=== PATIENT | male | born 1945 | race Caucasian/White ===

== ENCOUNTER 2019-07-25 16:48 | Observation (INO) ==
[2019-07-25 17:22] LABS: Bilirubin,Urine Negative (Negative); Blood,Urine Large (Negative); Clarity,Urine Clear (Clear); Color,Urine Yellow (Yellow); Glucose,Urine (UA) Normal (Normal); Ketones,Urine Trace mg/dL (Negative); Leukocyte Esterase,Urine Trace (Negative); Nitrite,Urine Negative (Negative); PH,Urine 5.5 pH Units (5.0-8.0); Protein,Urine 30 mg/dL (Neg-Trace); Specific Gravity,Urine 1.027 (1.010-1.025); Urobilinogen,Urine Normal (Normal)
[2019-07-25 17:26] LABS: Bacteria,Urine None Seen per hpf (None-Few); Hyaline Casts,Urine None Seen per lpf (None-Few); RBC,Urine TNTC per hpf (0-3); Squamous Epithelial Cell,Urine Moderate per lpf (None-Few)
[2019-07-25 18:12] LABS: Basophils % 0.4 %; Eosinophils # 0.1 K/mcL (0.0-0.6); Eosinophils % 0.5 %; Hematocrit 41.8 % (37.5-50.1); Hemoglobin 13.6 g/dL (12.9-16.9); Immature Granulocytes % 0.2 % (0-4); Lymphocytes # 1.5 K/mcL (0.6-4.6); Mean Corpuscular HGB Conc 32.5 g/dL (31.6-35.5); Mean Corpuscular Hemoglobin 31.2 pg (28.0-33.3); Mean Corpuscular Volume 95.9 fL (83.0-100.0); Mean Platelet Volume 11.1 fL (9.4-12.4); Monocytes # 0.8 K/mcL (0.0-1.3); Monocytes % 9.1 %; Neutrophils # 6.7 K/mcL (1.6-8.9); Platelet Count 171 K/mcL (140-400); Red Blood Count 4.36 M/mcL (4.19-5.50); Segmented Neutrophils % 73.8 %; White Blood Count 9.1 K/mcL (4.3-11.1)
[2019-07-25 18:26] LABS: Alanine Aminotransferase 15 Units/L (7-52); Albumin 3.7 g/dL (3.5-5.7); Albumin/Globulin Ratio 1.6 (1.1-2.2); Alkaline Phosphatase 54 Units/L (34-104); Aspartate Amino Transferase 14 Units/L (13-39); BUN/Creatinine Ratio 15 (6-26); Bilirubin,Direct 0.2 mg/dL (0.0-0.2); Bilirubin,Indirect 0.4 mg/dL (0.0-1.0); Bilirubin,Total 0.6 mg/dL (0.3-1.0); Blood Urea Nitrogen 15 mg/dL (8-23); Calcium 9.2 mg/dL (8.6-10.3); Carbon Dioxide 25 mEq/L (23-29); Chloride 107 mEq/L (98-107); Globulin 2.3 g/dL (2.4-3.5); Glucose 119 mg/dL (70-105); Lipase 29 Units/L (11-82); Osmolality,Calculated 290 (280-300); Potassium 4.4 mEq/L (3.5-5.1); Sodium 139 mEq/L (136-145); eGFR For African Americans > 60 (> 60); eGFR For Non-African Americans > 60 (> 60)
[2019-07-25] MEDS ORDERED: Ondansetron 4 MG/2 ML VIAL IVP ONE (19:13)
[2019-07-25] MEDS ORDERED: *HR* HYDROmorphone (PF) 1 MG/ML SYRINGE IVP ONE (19:13)
[2019-07-25] MEDS ORDERED: Ketorolac 15 MG/ML VIAL IVP ONE (19:14)
[2019-07-25] MEDS ORDERED: cefTRIAXone 1,000 MG in Water for inj. (sterile) 10 ML IVP ONE (19:15)
[2019-07-25] MEDS ORDERED: Ondansetron ODT 4 MG TAB.RAPDIS SL PRN (22:13)
[2019-07-25] MEDS ORDERED: Naloxone 0.4 MG/ML INJ IVP PRN ×2 (22:13→22:16)
[2019-07-25 22:56] LABS: Troponin I < 0.03 ng/mL (< 0.04)
[2019-07-25] MEDS: 0.9 % Sodium Chloride 1,000 ML IVC SCH (23:19)
[2019-07-26 05:33] LABS: Basophils # 0.1 K/mcL (0.0-0.2); Basophils % 0.8 %; Eosinophils # 0.1 K/mcL (0.0-0.6); Eosinophils % 1.7 %; Hemoglobin 12.7 g/dL (12.9-16.9); Immature Granulocytes % 0.1 % (0-4); Lymphocytes # 2.3 K/mcL (0.6-4.6); Lymphocytes % 28.9 %; Mean Corpuscular HGB Conc 33.4 g/dL (31.6-35.5); Mean Corpuscular Hemoglobin 32.2 pg (28.0-33.3); Mean Corpuscular Volume 96.4 fL (83.0-100.0); Mean Platelet Volume 11.2 fL (9.4-12.4); Monocytes # 0.9 K/mcL (0.0-1.3); Monocytes % 10.9 %; Neutrophils # 4.5 K/mcL (1.6-8.9); Platelet Count 148 K/mcL (140-400); Red Blood Count 3.94 M/mcL (4.19-5.50); Red Cell Distribution Width 12.1 % (11.5-14.5); Segmented Neutrophils % 57.6 %; White Blood Count 7.8 K/mcL (4.3-11.1)
[2019-07-26 05:40] LABS: INR 1.1; Prothrombin Time 12.6 Seconds (9.4-12.1)
[2019-07-26 05:49] LABS: Alanine Aminotransferase 13 Units/L (7-52); Albumin 3.4 g/dL (3.5-5.7); Albumin/Globulin Ratio 1.7 (1.1-2.2); Alkaline Phosphatase 50 Units/L (34-104); Aspartate Amino Transferase 12 Units/L (13-39); BUN/Creatinine Ratio 16 (6-26); Bilirubin,Total 0.5 mg/dL (0.3-1.0); Blood Urea Nitrogen 16 mg/dL (8-23); Calcium 8.6 mg/dL (8.6-10.3); Carbon Dioxide 26 mEq/L (23-29); Chloride 108 mEq/L (98-107); Glucose 101 mg/dL (70-105); Osmolality,Calculated 291 (280-300); Sodium 140 mEq/L (136-145); Total Protein 5.4 g/dL (6.4-8.9); eGFR For African Americans > 60 (> 60); eGFR For Non-African Americans > 60 (> 60)
[2019-07-26] MEDS: 0.9 % Sodium Chloride 1,000 ML IVC SCH (05:54)
[2019-07-26] MEDS ORDERED: *HR* Propofol 200 MG/20 ML VIAL IVP ONE (07:29)
[2019-07-26] MEDS ORDERED: *HR* FentaNYL (PF) 100 MCG/2 ML VIAL ONE (07:29)
[2019-07-26] MEDS ORDERED: Lidocaine -MPF 2% 2 ML VIAL ONE (07:31)
[2019-07-26] MEDS ORDERED: cefTRIAXone 1,000 MG in Water for inj. (sterile) 10 ML IVP SCH (09:00)
[2019-07-26] MEDS ORDERED: Dexamethasone 4 MG/ML VIAL ONE (10:34)
[2019-07-26] MEDS ORDERED: Ondansetron 4 MG/2 ML VIAL ONE (10:34)
[2019-07-26] MEDS ORDERED: EPHEDrine 50 MG/ML VIAL ONE (11:18)
[2019-07-26] MEDS ORDERED: Ondansetron ODT 4 MG TAB.RAPDIS SL PRN (12:32)
[2019-07-26] MEDS ORDERED: Naloxone 0.4 MG/ML INJ IVP PRN (12:32)
[2019-07-26 15:24] VITALS: BP 132/81
[2019-07-26] MEDS ORDERED: *HR* Heparin 5,000 UNIT/ML VIAL SQ SCH ×2 (18:00)
[2019-07-27] MEDS ORDERED: cefTRIAXone 1,000 MG in Water for inj. (sterile) 10 ML IVP SCH (09:00)
[2019-07-31 16:55] LABS: Calculi Mass 70 mg
== END 2019-07-26 15:30 | disposition home or self-care (01) ==
LOC: EMEROOARM 16:48 → 3ANU 16:48 → SUATTDRO 20:07 → 3ANU 21:10
PROVIDERS: ADMIT Internal Medicine; ATTEND Internal Medicine